=== PATIENT | female | born 1995 | race Caucasian/White ===

== ENCOUNTER 2024-08-13 10:06 | Emergency (ER) | payer OTHER, SELFPAY ==
[2024-08-13 10:08] VITALS: BP 119/74; PULSE 97; RESP 15; TEMP 36; O2SAT 100; BMI 41.1
--- NOTE | 2024-08-13 10:33 | EDS_ITS ---
HPI History of Present Illness HPI Narrative: Patient presents with left thumb injury that occurred today. Patient states she was working with a horse and she went to grab a foal and her thumb was hyperextended. Patient states her pain is burning and stabbing. Patient states it is worse with movement. Patient states ice seems to help with the pain. Patient states it was tingling initially but currently denies any paresthesias or weakness. Patient denies any other injuries. Chief Complaint: Upper Extremity Injury Informant: patient Occured/Mechanism Mechanism/Context: Yes work related Comment: Hyperextension Onset/Context/Timing Onset: Today Context: Sudden Onset Timing: Continuous Location: Left thumb Worsened by: Movement Relieved by: Ice Associated Symptoms Associated Symptoms: Positive for Parasthesia; Negative for Weakness or Loss of Funtion PFSH PFSH Medical History no medical history Allergy/AdvReac Type Severity Reaction Status Date / Time amoxicillin Allergy Intermediate Rash Verified 08/13/24 10:08 red dye Allergy Intermediate Rash Verified 08/13/24 10:08 Family History no significant family his Surgical History (Updated 08/13/24 @ 11:[address] Samson Connors DO) Hx of appendectomy Surgical History no surgical history Social History Smoking Status: Never smoker ROS ROS ED Constitutional Constitutional ED: Denies chills or fever(s) Eyes Eyes: Denies blurry vision or change in vision ENT ENT ED: Denies rhinorrhea or sore throat Cardiovascular Cardiovascular: Denies chest pain or palpitations Respiratory/Chest Respiratory/Chest: Denies cough or dyspnea Gastrointestinal Gastrointestinal: Denies nausea or vomiting Genitourinary Genitourinary ED: Denies dysuria or hematuria Musculoskeletal Musculoskeletal: Denies back pain or neck pain Integumentary Denies abscess or rash Neurologic Neurologic: Denies headache(s) or weakness Allergic/Immunologic Allergic/Immunologic ED: Denies mouth swelling or urticaria EXAM Physical Exam Const Vital Signs: 08/13/24 10:08 Temperature 96.8 F L Temperature Source Temporal Pulse Rate 97 Respiratory Rate 15 Blood Pressure 119/74 Blood Pressure Mean 89 Pulse Ox 100 Oxygen Delivery Method Room Air Positive well nourished and well developed Constitutional Narrative: BMI is 41.2 General Appearance ED: well developed and NAD HEENT Reports moist mucous membranes Neck full ROM and supple Extremity Extremity Narrative: There is diffuse tenderness over the left thumb. There is some mild edema. There is no ecchymosis. There is no deformity noted. Range of motion was slightly limited in all motions of the left thumb secondary to pain. Sensation was intact to light touch in the radial, median, and ulnar areas. Strength is 5/5 in the radial, median, and ulnar areas. Neuro oriented x3, CN's II-XII intact bilaterally, moves all extremities, no focal motor deficits and no sensory deficits noted Sensorium / Orientation: alert Motor Exam: strength 5/5 throughout Psych mental status grossly normal MDM MDM MDM Narrative Medical decision making narrative: Differential diagnosis includes fracture, sprain, and contusion. X-rays of the left hand will be obtained to assess for fracture and sprain. Radiography Diagnostic Testing: X-rays of the left hand were obtained. There are 3 views. On my independent interpretation, there is a nondisplaced fracture at the base of the left first proximal phalanx. There is no soft tissue swelling noted. Radiologist also interpreted the x-rays and agrees. Treatment and Re-Evaluation Narrative: Patient was advised of her findings. Patient was placed in a well-padded custom made thumb spica splint using 3 inch Ortho-Glass. Patient was instructed to ice and elevate the left hand. Patient was instructed to follow-up with her primary care physician in 5 to 7 days. Patient was also given referral for orthopedics. Patient declines opiate analgesics. Patient was instructed to return if worse in any way. Patient understood and was agreeable with the plan. All questions were answered. Procedures Upper Extremity Splints Upper Extremity Splint: Orthoglass and Thumb Spica Splint Fabrication: Fabricated Location: Left Discharge Plan Triage Chief Complaint: Upper Extremity Injury ED Provider: Samson Connors Dx/Rx/DC Orders Clinical Impression: Fracture of thumb, proximal phalanx, left, closed Instructions: ED Fracture, Thumb Primary Care Provider: Kathe Olivia NP Referrals: Kathe Olivia NP [Other] - 5-7 Days Franc José MD [Med Staff - Active Staff] - 3-5 Days [facility] Doctor,Out of [Non-Staff] - Print Language: Portuguese Disposition Disposition: Home, Self Care
--- NOTE | 2024-08-13 10:45 | RAD_ITS ---
PROCEDURE: HAND MIN 3 VIEWS 08/13/2024 REASON FOR EXAM: INJURY/PAIN TECHNIQUE: 3 view(s) of the left hand COMPARISON: None FINDINGS: There is an acute fracture at the base of the proximal phalanx of the thumb. The fracture is vertically oriented. It is uncertain whether the fracture extends to the articular surface of the 1st metacarpal phalangeal joint. There is no significant displacement. No soft tissue abnormality. RAD/Hand Min 3 Views IMPRESSION: 1. Acute fracture at the base of the proximal phalanx of the thumb. Reading Location: [facility]
== END 2024-08-13 13:02 | disposition home or self-care (01) ==
PROVIDERS: Emergency Provider Emergency Medicine; Visit Provider Emergency Medicine
DX: S62.512A Displaced fracture of proximal phalanx of left thumb, initial encounter for closed fracture (principal); Y99.0 Civilian activity done for income or pay; X50.9XXA Other and unspecified overexertion or strenuous movements or postures, initial encounter
CPT/HCPCS: 29125; 73130; 99282

== ENCOUNTER 2024-08-24 09:22 | Outpatient (RCR) | payer OTHER, SELFPAY ==
--- NOTE | 2024-08-24 11:33 | HP.OTEVAL ---
Patient's Visit Information Visit Information Visit Information: VICTOR HUGO LAWRENCE is a 29 year old F, referred to Occupational Therapy by Dr. Franc José MD, with a diagnosis of left thumb displaced fx of proximal phalanx. Date of Evaluation: 08/24/24 Occupational Therapist: Nela Muniz, ETHAN/David, CHT Subjective Subjective: This 29 year old female was seen for OT eval for dx of fracture of thumb proximal phalanx left closed- / displaced fx of proximal phalanx of left thumb - pt arrives for left thumb -custom hand based thumb spica to protect and support while fx is healing. pt is right handed works for [employer] August 14, 2023 Pain left thumb: Current Pain Intensity: 2 Pain Intensity Range: 2 ROM CMC: right 15 left NT MP: right 60* left NT IP: right 60 left NT ROM Comments: will test ROM when fx is stable for motion Quick DASH-Disab of Arm,Shoulder& Hand Quick DASH Score: 75.0000 Goals Goal:ROM equal to unaffected hand: Yes Goal:Pharmaceutical Operator/Pinch strength at least 75% of unaffected hand: Yes Goal:No pain with affected hand use: Yes Goal:Improvement in sensation documented by [place] monofiliaments: Yes Other Goal: ROM and strength goals will not be initiated until Dr. jones pt for formal therapy if pt needs would indicate. orthosis use: pt will demo understanding of orthosis use by end of 1st session. Pt will demo understanding of orthosis use and precautions by end of 1st session. Pt will return to clinic for orthosis adjustment. Rehabilitation General Assessment: pt arrives with recent displaced left thumb proximal phalanx fx in need of custom orthosis ( thumb spica hand based) . Today therapist darin. hand based thumb spica orthosis- ed. pt to return if any irritation occurs with using orthosis. Pt at this time will not be seen for formal therapy until fx is healed and Dr. jones pt to initiate ROM and transition to strengthening. Pt demo understanding and agree to POC. Rehabilitation Potential: Good Anticipated Interventions Anticipated Interventions: A/AAROM/PROM, Strengthening, Edema Control, Orthoses, Joint Protection/Energy Conservation, Education re assistive Equipment, Education re Diagnosis and Home Program Visit Plan Frequency: Every Other Week Duration: 6 Weeks General Plan: orthosis use until fx is healed to initiate ROM and strengthening- TEXT: Thank you for the opportunity to evaluate your patient. For Medicare and Medicare HMO plans, please review the plan of care and approve it. It will need to be FAXED BACK to us at [phone] for Medicare purposes. Please let me know if there are questions or concerns regarding this plan of care. Physician Signature: Date:
--- NOTE | 2024-12-15 14:32 | HP.OT.NRP ---
Patient Information Patient Information: VICTOR HUGO LAWRENCE was seen in my office for initial evaluation on 08/24/24. The following Plan of Care was established for this patient: POC Established Initial Frequency: Every Other Week Initial Duration: 6 Weeks Anticipated Interventions Anticipated Interventions: A/AAROM/PROM, Strengthening, Edema Control, Orthoses, Joint Protection/Energy Conservation, Education re assistive Equipment, Education re Diagnosis and Home Program Last Seen Last Seen: This patient was last seen in our office 08/24/24. Pertinent comments regarding their Occupational therapy will appear below: pt was seen for orthosis darin. no further apts have been scheduled. pt d.c at this time due to time lapse in services. At this point I will be discontinuing this patient from occupational therapy. I would be happy to see this patient again in the future if found appropriate by the physician. Thank you! Nela Muniz, OTR/L, CHT
== END 2024-08-24 19:00 | disposition home or self-care (01) ==
LOC: OT 09:22
PROVIDERS: Visit Provider Orthopaedic Surgery Sports Medicine
DX: S62.512D Displaced fracture of proximal phalanx of left thumb, subsequent encounter for fracture with routine healing (principal)
CPT/HCPCS: 97166